=== PATIENT | male | born 1955 | race African-American/Black ===

== ENCOUNTER 2018-08-06 14:38 | Emergency (ER) | payer BC ==
[~2018-08-06] VITALS: Ht 172.7 cm; Wt 96.6 kg
[2018-08-06] MEDS ORDERED: ANTIVERT25 MG PO (15:40)
[2018-08-06] MEDS ORDERED: ZOFRAN ODT4 MG PO (15:40)
[2018-08-06 15:52] VITALS: BP 134/58
== END 2018-08-06 15:57 | disposition home or self-care (01) ==
LOC: ER 14:38
DX: H81.10 Benign paroxysmal vertigo, unspecified ear (principal); E11.9 Type 2 diabetes mellitus without complications